=== PATIENT | female | born 1975 | race Caucasian/White ===

== ENCOUNTER 2018-01-18 23:28 | Emergency (ER) | payer OTHER ==
[~2018-01-18] VITALS: Ht 172.7 cm; Wt 72.0 kg
[2018-01-19] MEDS ORDERED: AMOXICILLIN500 MG PO (00:09)
[2018-01-19 00:31] VITALS: BP 151/89
== END 2018-01-19 00:31 | disposition home or self-care (01) ==
LOC: EME 23:28
DX: J02.0 Streptococcal pharyngitis (principal)
CPT/HCPCS: 87651 90; 99281; 99284; J8540